=== PATIENT | male | born 1965 | race Asian ===

== ENCOUNTER 2018-02-26 07:50 | Outpatient (CLI) | payer OTHER ==
--- NOTE | 2018-02-26 13:38 | CARDIAC PROCEDURE NOTE ---
DATE OF SERVICE: 02/26/2018 Physician: Suzanna Razo MD, [facility] INDICATIONS: Chest pain. CARDIAC RISK FACTORS: Diabetes, family history of heart disease, elevated cholesterol, hypertension. SUMMARY: After signing informed consent, the patient performed exercise stress testing on a Patrick protocol. Resting heart rate 67, peak heart rate 143 (86% predicted maximum heart rate for age). Resting blood pressure 118/62, peak blood pressure 150/60. The patient exercised for 10 minutes and 9 seconds on a Patrick protocol. He achieved a peak heart rate of 143 (86% PMHR), and 12.04 METs. The patient had mild shortness of breath. He had 1/10 chest pressure, which he described as a "knot" starting pre- exercise testing, and throughout all stages of testing with no change and remained the same in recovery. RESTING ELECTROCARDIOGRAM: Normal sinus rhythm, left atrial enlargement, vertical axis, early repolarization. PEAK ELECTROCARDIOGRAM: No ischemic ST segment or T-wave changes. SUMMARY 1. Good exercise tolerance. 2. No ischemic changes by EKG criteria on this exercise stress test at an adequate-achieved heart rate. 3. No imaging was ordered with this test. cc: Angus Bourgeois MD TD: 02/26/2018 12:36 MTDD
== END 2018-02-26 07:51 | disposition home or self-care (01) ==
LOC: DI 07:50
PROVIDERS: ATTEND Family Medicine
DX: R07.9 Chest pain, unspecified (principal)
CPT/HCPCS: 93017

== ENCOUNTER 2018-05-11 07:37 | Outpatient (CLI) | payer OTHER ==
--- NOTE | 2018-05-11 12:40 | MRI Report ---
Reason: CERVICALGIA Procedure Date: 05/11/2018 Accession Number: [id number] / [id number] Procedure: MRI - Cervical Spine W/O CPT Code: FULL RESULT: EXAM: MRI CERVICAL SPINE WITHOUT CONTRAST EXAM DATE: 05/11/2018 08:23 AM. CLINICAL HISTORY: Neck pain that radiates into both shoulders. COMPARISONS: None. TECHNIQUE: Multiplanar, multisequence T1-weighted and fluid-sensitive sequences of the cervical spine without contrast. Other: None. FINDINGS: No suspicious marrow replacement is present. No abnormal signal is present in the cervical spinal cord. C2-C3: Posterior bulge of the annulus. C3-C4: A mild posterior disk protrusion is seen, greatest involving the posterior lateral margin of the disk bilaterally. Bilateral uncovertebral joint spurring is seen. Minimal right foraminal stenosis. Left foraminal narrowing. C4-C5: A minimal subligamentous central disk protrusion is seen. Bilateral uncovertebral joint spurring. No stenosis. C5-C6: A minimal subligamentous central disk protrusion is seen. Bilateral uncovertebral joint spurring. No stenosis. C6-C7 and C7-T1: No posterior disk protrusion. No stenosis. There is minimal uncovertebral joint spurring on the left at C6-C7. IMPRESSION: 1. Minimal degenerative disk disease is seen at C4-C5 and C5-C6. Mild degenerative disk disease is seen at C3-C4. 2. Scattered uncovertebral joint spurring is seen. This results in minimal right foraminal stenosis at C3-C4. 3. No central canal stenosis. [facility]
== END 2018-05-11 07:38 | disposition home or self-care (01) ==
LOC: DI 07:37
PROVIDERS: ATTEND Family Medicine
DX: M50.321 Other cervical disc degeneration at C4-C5 level (principal)
CPT/HCPCS: 72141